=== PATIENT | female | born 1995 | race Caucasian/White ===

== ENCOUNTER 2017-10-21 02:44 | Emergency (ER) | payer OTHER ==
[~2017-10-21] VITALS: Ht 154.9 cm; Wt 80.0 kg
[2017-10-21 02:45] VITALS: BP 136/89; PULSE 130; RESP 16; TEMP 98.5; O2SAT 98
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
[2017-10-21] MEDS ORDERED: BUPIVACAINE HCL PF 0.5% 10 ML VIAL INFIL ONE (03:15)
[2017-10-21] MEDS ORDERED: LIDOCAINE HCL 1% 50 ML VIAL INFIL ONE (03:15)
[2017-10-21 03:55] VITALS: PULSE 116
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
--- NOTE | 2017-10-21 06:35 | RADRPT ---
EXAM DATE/TIME: 10/21/2017 04:49 [facility] COMPARISON: FINGER RIGHT 4TH DIGIT ([id number]), October 21, 2017, 3:16. INDICATIONS : Post reduction. MEDICAL HISTORY : None. SURGICAL HISTORY : None. ENCOUNTER: Subsequent ACUITY: 1 day PAIN SCORE: 4/10 LOCATION: Right upper extremity FINDINGS: There has been interval reduction of a fourth finger DIPs dislocation. There is no evidence of fractu re. CONCLUSION: Satisfactory appearance post reduction Prashant Jerry MD on October 21, 2017 at 6:33 Board Certified Radiologist. This report was verified electronically.
--- NOTE | 2017-10-21 18:38 | EKG ---
Date Performed: 10/21/2017 Time Performed: 03:08:58 PTAGE: 22 years EKG: SINUS TACHYCARDIA ABNORMAL RHYTHM ECG NO PREVIOUS TRACING DOCTOR: Adrian Burrell Interpretating Date/Time 10/21/2017 18:38:33
== END 2017-10-21 05:04 | disposition home or self-care (01) ==
LOC: NEPD 02:44
DX: S63.294A Dislocation of distal interphalangeal joint of right ring finger, initial encounter (principal); X58.XXXA Exposure to other specified factors, initial encounter; Y92.89 Other specified places as the place of occurrence of the external cause
CPT/HCPCS: 26700; 73140; 93005